=== PATIENT | female | born 1955 | race Two or more races ===

== ENCOUNTER 2017-07-08 18:54 | Emergency (ER) | payer OTHER ==
[~2017-07-08] VITALS: Ht 157.5 cm; Wt 62.6 kg
[~2017-07-08 18:54] MED LIST: ACIDOPHILUS1 EAC1 PO; CIPRO500 MG PO; FLAGYL500MG PO; SIMVASTATIN1 GM; ULTRACET PO
[2017-07-08] MEDS ORDERED: COZAAR50 MG PO (19:26)
[2017-07-08] MEDS ORDERED: HYDROCHLOROTH12.5 M1 PO (19:27)
== END 2017-07-08 21:55 | disposition home or self-care (01) ==
LOC: ER 18:54
DX: R51 Headache (principal); M54.2 Cervicalgia

== ENCOUNTER 2017-08-03 14:37 | Outpatient (CLI) | payer OTHER ==
[~2017-08-03 14:37] MED LIST changes: +COZAAR50 MG PO; +HYDROCHLOROTH12.5 M1 PO
== END 2017-08-03 14:53 | disposition home or self-care (01) ==
LOC: RAD 501 14:37
DX: I10 Essential (primary) hypertension (principal)

== ENCOUNTER 2018-03-08 19:34 | Inpatient (IN) | payer OTHER ==
[~2018-03-08] VITALS: Ht 157.5 cm; Wt 60.3 kg
[2018-03-08] MEDS ORDERED: LEVOTHYROXINE75 MCG PO (19:56)
[2018-03-08] MEDS ORDERED: SIMVASTATIN40 MG PO (19:56)
== END 2018-03-12 17:26 | disposition home or self-care (01) | DRG 392 ==
LOC: ER 19:34 → MEDJ 03-09 20:27 → MEDI 03-09 20:27
DX: K57.32 Diverticulitis of large intestine without perforation or abscess without bleeding (principal)

== ENCOUNTER → 2018-06-09 | Outpatient (CLI) | payer OTHER ==
[~2018-06-09] MED LIST changes: +LEVOTHYROXINE75 MCG PO; +SIMVASTATIN40 MG PO
== END | disposition home or self-care (01) ==
LOC: NUCLEAR 13:41
DX: M79.604 Pain in right leg (principal)

== ENCOUNTER → 2018-10-20 | Emergency (ER) | payer OTHER | END | disposition left against medical advice (07) | LOC: ER 23:10 | DX: Z53.20 Procedure and treatment not carried out because of patient's decision for unspecified reasons (principal) ==

== ENCOUNTER 2018-11-10 23:33 | Emergency (ER) | payer OTHER ==
[~2018-11-10] VITALS: Ht 157.5 cm; Wt 62.1 kg
[2018-11-11] MEDS ORDERED: HYDRODIURIL12.5 MG PO (01:33)
[2018-11-11] MEDS ORDERED: RANITIDINE HCL300 MG PO ×2 (01:34)
== END 2018-11-11 01:49 | disposition home or self-care (01) ==
LOC: ER 23:33
DX: I16.0 Hypertensive urgency (principal); I10 Essential (primary) hypertension

== ENCOUNTER → 2018-11-11 | Outpatient (CLI) | payer OTHER ==
[~2018-11-11] MED LIST changes: +HYDRODIURIL12.5 MG PO; +RANITIDINE HCL300 MG PO
== END | disposition home or self-care (01) ==
LOC: RAD 11:41 → SONOGRAMA 11:45
DX: I11.9 Hypertensive heart disease without heart failure (principal); E03.8 Other specified hypothyroidism; E78.00 Pure hypercholesterolemia, unspecified; M54.5 Low back pain; M54.2 Cervicalgia; E04.2 Nontoxic multinodular goiter

== ENCOUNTER → 2018-11-11 | Outpatient (CLI) | payer OTHER | END | disposition home or self-care (01) | LOC: RAD 16:11 | DX: I10 Essential (primary) hypertension (principal) ==

== ENCOUNTER 2018-12-16 09:25 | Outpatient (CLI) | payer OTHER | END 2018-12-16 09:32 | disposition home or self-care (01) | LOC: SONOGRAMA 09:25 | DX: E04.2 Nontoxic multinodular goiter (principal) ==

== ENCOUNTER 2019-02-09 16:43 | Outpatient (CLI) | payer OTHER | END 2019-02-09 16:48 | disposition home or self-care (01) | LOC: RAD 16:43 | DX: J44.1 Chronic obstructive pulmonary disease with (acute) exacerbation (principal); J01.90 Acute sinusitis, unspecified; J32.8 Other chronic sinusitis ==

== ENCOUNTER 2019-04-21 13:25 | Emergency (ER) | payer OTHER ==
[~2019-04-21] VITALS: Ht 157.5 cm; Wt 62.6 kg
[2019-04-21] MEDS ORDERED: CIPRO500 MG PO (13:39)
== END 2019-04-21 16:07 | disposition home or self-care (01) ==
LOC: ER 13:25
DX: K57.92 Diverticulitis of intestine, part unspecified, without perforation or abscess without bleeding (principal); K40.90 Unilateral inguinal hernia, without obstruction or gangrene, not specified as recurrent

== ENCOUNTER 2020-01-06 10:05 | Emergency (ER) | payer OTHER ==
[~2020-01-06] VITALS: Ht 157.5 cm; Wt 62.6 kg
== END 2020-01-06 14:33 | disposition home or self-care (01) ==
LOC: ER 10:05
DX: S92.422A Displaced fracture of distal phalanx of left great toe, initial encounter for closed fracture (principal); W22.8XXA Striking against or struck by other objects, initial encounter; Y93.89 Activity, other specified; Y92.69 Other specified industrial and construction area as the place of occurrence of the external cause; Y99.8 Other external cause status

== ENCOUNTER 2020-01-20 09:00 | Emergency (ER) | payer OTHER ==
[~2020-01-20] VITALS: Ht 157.5 cm; Wt 62.6 kg
[2020-01-20] MEDS ORDERED: SYNTHROID88 MCG PO (09:14)
[2020-01-20] MEDS ORDERED: VITAMIN D3250 MCG PO (09:14)
[2020-01-20] MEDS ORDERED: SIMVASTATIN20 MG PO (09:14)
[2020-01-20] MEDS ORDERED: [UNRECOGNIZED DRUG - OTHER] (09:15)
[2020-01-20] MEDS ORDERED: VITAMIN E (09:15)
== END 2020-01-20 11:13 | disposition home or self-care (01) ==
LOC: ER 09:00
DX: M62.838 Other muscle spasm (principal); R51.9 Headache, unspecified

== ENCOUNTER → 2020-03-06 | Outpatient (CLI) | payer OTHER ==
[~2020-03-06] MED LIST changes: +SIMVASTATIN20 MG PO; +SYNTHROID88 MCG PO; +VITAMIN D3250 MCG PO; +VITAMIN E; +[UNRECOGNIZED DRUG - OTHER]
== END | disposition home or self-care (01) ==
LOC: RAD 15:50
PROVIDERS: ATTEND Specialist
DX: R91.1 Solitary pulmonary nodule (principal)

== ENCOUNTER 2020-09-24 12:30 | Inpatient (IN) | payer OTHER ==
[~2020-09-24] VITALS: Ht 162.6 cm; Wt 65.8 kg
[2020-09-28] MEDS ORDERED: AMOX-CLAV 875-1 EACH PO (14:07)
[2020-09-28] MEDS ORDERED: INTESTINEX680 M1 PO (14:08)
[2020-09-28] MEDS ORDERED: PROTONIX40 MG PO (14:08)
== END 2020-09-28 18:57 | disposition home or self-care (01) | DRG 392 ==
LOC: ER 12:30 → SURG 09-25 19:00 → SEC-K 09-25 19:00 → SURG 09-26 01:31
PROVIDERS: ADMIT Surgery; ATTEND Surgery
PROC: BW2110Z Computerized Tomography (CT Scan) of Abdomen and Pelvis using Low Osmolar Contrast, Unenhanced and Enhanced (ICD-10-PCS; principal; 2020-09-25)
DX: K57.32 Diverticulitis of large intestine without perforation or abscess without bleeding (principal); R10.32 Left lower quadrant pain; R07.89 Other chest pain; K29.60 Other gastritis without bleeding; Z20.822 Contact with and (suspected) exposure to COVID-19; I10 Essential (primary) hypertension; E03.8 Other specified hypothyroidism; D70.3 Neutropenia due to infection

== ENCOUNTER 2020-12-15 12:11 | Emergency (ER) | payer OTHER ==
[~2020-12-15] VITALS: Ht 157.5 cm; Wt 68.0 kg
[~2020-12-15 12:11] MED LIST changes: +AMOX-CLAV 875-1 EACH PO; +INTESTINEX680 M1 PO; +PROTONIX40 MG PO
[2020-12-15] MEDS ORDERED: FOLIC ACID0.4 MG PO (12:21)
[2020-12-15] MEDS ORDERED: HAIR, SKIN AND1 EAC1 PO (12:21)
[2020-12-15] MEDS ORDERED: VITAMIN E400 UNI5 (12:22)
[2020-12-15] MEDS ORDERED: VITAMIN B-121000 MC1 PO (12:22)
[2020-12-15] MEDS ORDERED: RESTASIS MULTI5.5 ML (13:07)
[2020-12-15] MEDS ORDERED: TOBRADEX EYE DR10 ML OP (13:16)
[2020-12-15] MEDS ORDERED: EYE ALLERGY REL15 M1 OP (13:16)
[2020-12-15] MEDS ORDERED: AMBIEN10 MG PO (13:16)
== END 2020-12-15 14:02 | disposition home or self-care (01) ==
LOC: ER 12:11
DX: H10.11 Acute atopic conjunctivitis, right eye (principal)

== ENCOUNTER → 2020-12-25 07:07 | Outpatient (CLI) | payer OTHER ==
[~2020-12-25 07:07] MED LIST changes: +ALPRAZOLAM1 MG; +AMBIEN10 MG PO; +B-COMPLEX/C T400 MCG; +BONIVA150 MG PO; +EYE ALLERGY REL15 M1 OP; +FAMOTIDINE20 MG; +FOLIC ACID0.4 MG; +FOLIC ACID0.4 MG PO; +HAIR, SKIN AND1 EAC1 PO; +INTESTINEX680 M1; +LORATADINE10 MG; +MELATONIN5 M1; +RESTASIS MULTI5.5 ML; +SIMVASTATIN20 MG; +SYNTHROID75 MCG PO; +TOBRADEX EYE DR10 ML OP; +VITAMIN B-121000 MC1 PO; +VITAMIN D350 MCG; +VITAMIN E400 UNI5
== END | disposition home or self-care (01) ==
LOC: LAB 07:07 → EKG 07:07
PROVIDERS: ATTEND Colon & Rectal Surgery
DX: I10 Essential (primary) hypertension (principal)

== ENCOUNTER 2020-12-26 11:00 | Inpatient (IN) | payer OTHER ==
[~2020-12-26] VITALS: Ht 157.5 cm; Wt 61.2 kg
[~2020-12-26 11:00] MED LIST changes: -ALPRAZOLAM1 MG; -B-COMPLEX/C T400 MCG; -BONIVA150 MG PO; -FAMOTIDINE20 MG; -FOLIC ACID0.4 MG; -INTESTINEX680 M1; -LORATADINE10 MG; -MELATONIN5 M1; -SIMVASTATIN20 MG; -SYNTHROID75 MCG PO; -VITAMIN D350 MCG
[2020-12-26] MEDS ORDERED: SYNTHROID75 MCG PO (13:29)
[2020-12-26] MEDS ORDERED: BONIVA150 MG PO (13:30)
[2020-12-31] MEDS ORDERED: FOLIC ACID0.4 MG (11:46)
[2020-12-31] MEDS ORDERED: B-COMPLEX/C T400 MCG (11:46)
[2020-12-31] MEDS ORDERED: LORATADINE10 MG (11:47)
[2020-12-31] MEDS ORDERED: SIMVASTATIN20 MG (11:47)
[2020-12-31] MEDS ORDERED: FAMOTIDINE20 MG (11:47)
[2020-12-31] MEDS ORDERED: VITAMIN D350 MCG (11:47)
[2020-12-31] MEDS ORDERED: MELATONIN5 M1 (11:47)
[2020-12-31] MEDS ORDERED: INTESTINEX680 M1 (11:47)
[2020-12-31] MEDS ORDERED: ALPRAZOLAM1 MG (11:47)
[2021-01-03] MEDS ORDERED: HYOSCYAMINE0.125 M1 SL (16:51)
[2021-01-03] MEDS ORDERED: OXYC1TAB9 PO (16:52)
== END 2021-01-03 19:00 | disposition home or self-care (01) | DRG 333 ==
LOC: O/R 12-31 05:59 → SURH 12-31 07:00 → O/R 12-31 11:21 → SURH 12-31 15:17
PROVIDERS: ADMIT Colon & Rectal Surgery; ATTEND Colon & Rectal Surgery
PROC: 0DTP4ZZ Resection of Rectum, Percutaneous Endoscopic Approach (ICD-10-PCS; principal; 2020-12-31 07:00)
DX: K57.32 Diverticulitis of large intestine without perforation or abscess without bleeding (principal); K92.1 Melena

== ENCOUNTER 2022-02-03 17:05 | Outpatient (CLI) | payer OTHER ==
[~2022-02-03 17:05] MED LIST changes: +ALPRAZOLAM1 MG; +B-COMPLEX/C T400 MCG; +BONIVA150 MG PO; +FAMOTIDINE20 MG; +FOLIC ACID0.4 MG; +HYOSCYAMINE0.125 M1 SL; +INTESTINEX680 M1; +LORATADINE10 MG; +MELATONIN5 M1; +OXYC1TAB9 PO; +SIMVASTATIN20 MG; +SYNTHROID75 MCG PO; +VITAMIN D350 MCG
== END 2022-02-03 17:11 | disposition home or self-care (01) ==
LOC: LAB 17:05
PROVIDERS: ATTEND Colon & Rectal Surgery
DX: K57.32 Diverticulitis of large intestine without perforation or abscess without bleeding (principal); K92.1 Melena; Z12.11 Encounter for screening for malignant neoplasm of colon; Z03.818 Encounter for observation for suspected exposure to other biological agents ruled out; Z20.822 Contact with and (suspected) exposure to COVID-19

== ENCOUNTER 2022-04-30 10:26 | Outpatient (CLI) | payer OTHER | END 2022-04-30 10:29 | disposition home or self-care (01) | LOC: SONOGRAMA 10:26 | PROVIDERS: ATTEND Pathology Anatomic Pathology & Clinical Pathology | DX: D17.79 Benign lipomatous neoplasm of other sites (principal); N60.11 Diffuse cystic mastopathy of right breast ==

== ENCOUNTER 2022-08-20 14:38 | Outpatient (CLI) | payer OTHER | END 2022-08-20 14:42 | disposition home or self-care (01) | LOC: SONOGRAMA 14:38 | PROVIDERS: ATTEND Surgery | DX: M25.512 Pain in left shoulder (principal) ==

== ENCOUNTER 2022-11-13 09:35 | Emergency (ER) | payer OTHER ==
[~2022-11-13] VITALS: Ht 157.5 cm; Wt 63.0 kg
[2022-11-13] MEDS ORDERED: SYNTHROID100 MCG PO (10:01)
== END 2022-11-13 14:55 | disposition home or self-care (01) ==
LOC: ER 09:35
PROVIDERS: General Practice
DX: R42 Dizziness and giddiness (principal); E03.8 Other specified hypothyroidism; I10 Essential (primary) hypertension

== ENCOUNTER 2023-01-05 10:06 | Outpatient (CLI) | payer OTHER ==
[~2023-01-05 10:06] MED LIST changes: +SYNTHROID100 MCG PO
== END 2023-01-05 10:19 | disposition home or self-care (01) ==
LOC: MRI 10:06
PROVIDERS: ATTEND Internal Medicine Hematology & Oncology
DX: M54.02 Panniculitis affecting regions of neck and back, cervical region (principal); M54.12 Radiculopathy, cervical region; M54.14 Radiculopathy, thoracic region; M54.16 Radiculopathy, lumbar region
CPT/HCPCS: 72141; 72146; 72148

== ENCOUNTER 2023-03-03 07:18 | Outpatient (CLI) | payer OTHER | END 2023-03-03 07:25 | disposition home or self-care (01) | LOC: SONOGRAMA 07:18 | PROVIDERS: ATTEND Internal Medicine | DX: N18.2 Chronic kidney disease, stage 2 (mild) (principal) ==

== ENCOUNTER 2023-04-08 00:35 | Emergency (ER) | payer OTHER ==
[~2023-04-08] VITALS: Ht 157.5 cm; Wt 63.5 kg
[2023-04-08] MEDS ORDERED: NABUMETONE750 MG PO ×2 (04:59→05:00)
[2023-04-08] MEDS ORDERED: NORFLEX100MG PO ×2 (04:59→05:00)
== END 2023-04-08 05:12 ==
LOC: ER 00:35
DX: I10 Essential (primary) hypertension (principal); M54.2 Cervicalgia

== ENCOUNTER 2023-08-27 08:02 | Outpatient (CLI) | payer OTHER ==
[~2023-08-27 08:02] MED LIST changes: +NABUMETONE750 MG PO; +NORFLEX100MG PO
== END 2023-08-27 08:20 | disposition home or self-care (01) ==
LOC: MRI 08:02
PROVIDERS: ATTEND Internal Medicine
DX: M54.2 Cervicalgia (principal); S46.012A Strain of muscle(s) and tendon(s) of the rotator cuff of left shoulder, initial encounter; M54.17 Radiculopathy, lumbosacral region
CPT/HCPCS: 72141; 72148

== ENCOUNTER 2024-09-05 07:34 | Outpatient (CLI) | payer OTHER ==
[~2024-09-05 07:34] MED LIST changes: +ARTHRITIS PAIN50 GM TOP; +METHOCARBAMOL500 MG PO
== END 2024-09-05 07:35 | disposition home or self-care (01) ==
LOC: NUCLEAR 07:34
PROVIDERS: ATTEND Internal Medicine Cardiovascular Disease
DX: I73.9 Peripheral vascular disease, unspecified (principal); I87.2 Venous insufficiency (chronic) (peripheral)

== ENCOUNTER 2024-09-27 10:24 | Outpatient (CLI) | payer OTHER | END 2024-09-27 10:31 | disposition home or self-care (01) | LOC: TOM 10:24 | PROVIDERS: ATTEND Orthopaedic Surgery | DX: R07.9 Chest pain, unspecified (principal) ==

== ENCOUNTER 2025-01-03 16:23 | Emergency (ER) | payer OTHER ==
[~2025-01-03] VITALS: Ht 154.9 cm; Wt 62.6 kg
[2025-01-03] MEDS ORDERED: ROSUVASTATIN CAL5 MG PO (16:30)
[2025-01-03] MEDS ORDERED: PLAVIX75 MG PO (16:31)
[2025-01-03] MEDS ORDERED: BISOPROLOL-HCT1 EACH PO (16:31)
[2025-01-03 16:32] VITALS: BP 132/75; O2SAT 100
[2025-01-03] MEDS ORDERED: 0.9 % SODIUM CHLORIDE 1,000 ML IV SCH (17:00)
[2025-01-03] MEDS ORDERED: BUTALB/ACETAMINOPHEN/CAFFEINE 1 TAB TABLET PO ONE ×3 (17:00→23:09)
[2025-01-03] MEDS ORDERED: DEXAMETHASONE SODIUM PHOSP/PF 10 MG/ML VIAL IV ONE (17:00)
[2025-01-03] MEDS ORDERED: FAMOTIDINE/PF 20 MG/2 ML VIAL IV ONE (17:00)
[2025-01-03 19:52] LABS: BASO % 0.7 % (0.1-1.2); EOS # 0.06 (0.04-0.54); EOS % 1.3 % (0.7-7.0); LYMPH # 2.58 (1.18-3.74); LYMPH % 57.5 % (19.3-53.1); MEAN PLATELET VOLUME 10.40 fl (9.4-12.4); MONO # 0.42 (0.24-0.82); MONO % 9.4 % (4.7-12.5); NEUT # 1.39 (1.56-6.13); NEUT % 30.9 % (34.0-71.1); RED CELL DISTRIBUTION WIDTH 12.7 % (11.6-14.4)
[2025-01-03 20:20] LABS: COVID-19 AG NEGATIVE (NEGATIVE); INR 1.03
[2025-01-03 20:23] LABS: ALT/SGPT 26.0 U/L (12-78); AST/SGOT 18.0 U/L (15-37); BILIRUBIN TOTAL 0.25 mg/dL (0.3-1.2); BUN CREA RATIO 17.0 (7.0-25.0); CREATININE SERUM 1.04 mg/dL (0.55-1.02); GFR 52.24; GLOBULINA 3.6 G/DL (2.4-3.5); GLUCOSE FASTING 102.0 mg/dL (65-100); OSMOLALITY SERUM 285.0 MOSM/KG (275-295)
[2025-01-03] MEDS ORDERED: BUTALB-ACETAMI1 EAC2 PO (22:51)
== END 2025-01-03 23:45 | disposition home or self-care (01) ==
LOC: ER 16:23
PROVIDERS: Student in an Organized Health Care Education/Training Program
DX: G43.909 Migraine, unspecified, not intractable, without status migrainosus (principal); G44.209 Tension-type headache, unspecified, not intractable; E03.9 Hypothyroidism, unspecified; Z20.822 Contact with and (suspected) exposure to COVID-19
CPT/HCPCS: 36415; 70460; 96365; 96366; 99283; J1100; J3490; J7030; Q9965

== ENCOUNTER 2025-01-12 12:27 | Outpatient (CLI) | payer OTHER ==
[~2025-01-12 12:27] MED LIST changes: +BISOPROLOL-HCT1 EACH PO; +BUTALB-ACETAMI1 EAC2 PO; +PLAVIX75 MG PO; +ROSUVASTATIN CAL5 MG PO
== END 2025-01-12 12:36 | disposition home or self-care (01) ==
LOC: MRI 12:27
PROVIDERS: ATTEND Anesthesiology
DX: M54.9 Dorsalgia, unspecified (principal)
CPT/HCPCS: 72146